=== PATIENT | female | born 1955 | race Caucasian/White ===

== ENCOUNTER → 2017-01-01 | Outpatient (CLI) | payer BC ==
[2017-01-01 17:42] LABS: BASOPHILS # (AUTO) 0.03 10*3/UL; BASOPHILS % (AUTO) 0.4 % (0-1); EOSINOPHILS % (AUTO) 2.8 % (0-8); HEMATOCRIT 44.5 % (37.0-47.0); HEMOGLOBIN 14.4 g/dL (12.0-16.0); LYMPHOCYTES # (AUTO) 2.08 10*3/uL; MEAN CORPUSCULAR HEMOGLOBIN 27.9 PG (27-31); MEAN CORPUSCULAR HGB CONC 32.4 g/dL (33-37); MEAN CORPUSCULAR VOLUME 86.2 FL (81-99); MONOCYTES # (AUTO) 0.57 10*3/UL (0.3-0.8); MONOCYTES % (AUTO) 7.9 % (5-15); NEUTROPHILS % (AUTO) 59.9 % (50-80); RED BLOOD COUNT 5.16 10^6/uL (4.20-5.40)
[2017-01-01 17:46] LABS: PLATELET MORPHOLOGY COMMENT NORMAL MORPHOLOGY (NORM); RBC MORPHOLOGY COMMENT NORMAL MORPHOLOGY (NORM); WBC MORPHOLOGY COMMENT NORMAL MORPHOLOGY (NORM)
[2017-01-01 18:02] LABS: BLOOD UREA NITROGEN 26 mg/dL (7-22); BUN/CREATININE RATIO 37.14 (6-20); CHOL/HDL RATIO 2.85 RATIO (0-4.0); EST GLOMERULAR FILTRATION > 60 (>60 ml/min/1.73m(2)); HDL CHOLESTEROL 76 mg/dL (40-150); SERUM ALBUMIN 4.5 g/dL (3.5-4.8); SERUM CHOLESTEROL 217 mg/dL (120-200)
[2017-01-01 18:38] LABS: ERYTHROCYTE SEDIMENTATION RATE 7 MM/HR (0-20)
== END ==
LOC: MOB LAB 16:02
PROVIDERS: ATTEND Family Medicine
DX: R63.4 Abnormal weight loss (principal); I10 Essential (primary) hypertension; E78.5 Hyperlipidemia, unspecified; K21.9 Gastro-esophageal reflux disease without esophagitis; L98.9 Disorder of the skin and subcutaneous tissue, unspecified
CPT/HCPCS: 36415; 80053; 80061; 82306; 84443; 85025; 85652

== ENCOUNTER → 2017-04-02 | Day surgery (SDC) | payer BC ==
[~2017-04-02] MED LIST: LIDOCAINE HCL 1%/EPI 1:100,000 - 20 ML VIAL ONE; SODIUM BICARBONATE 8.4% - 50 ML VIAL ONE
--- NOTE | 2017-04-02 11:36 | GEN.OPNOTE ---
Operative Note Surgery Date: 04/02/17 Preoperative Diagnosis: 1.2 cm skin lesion right lower leg. Postoperative Diagnosis: Same. Procedure: Excision 1.2 cm skin lesion right lower leg. Surgeon: Willy Carreno MD Anesthesia Type: Local (1% Xylocaine with epinephrine and sodium bicarbonate.) Estimated Blood Loss (mL): 2 Fluids: No IV fluids given. Pathology: Specimen sent to pathology. Marked with a short stitch superiorly and a long stitch laterally. Indications: Nodular lesion right anterior [place]. Slowly increasing in size. Patient desires surgical excision. Findings: Nodular lesion in the dermis. Complications: None. Operative Summary: The patient was taken to the operating suite and placed in the operating table in a supine position. The right lower leg was prepped and draped in a sterile fashion. A surgical timeout was done. The ellipse of skin to include the lesion was taken. This left a defect of approximately 3.5 x 2 cm. The specimen was marked for orientation and sent for pathologic analysis. The skin edges were undermined circumferentially. The deep dermis was closed with inverted interrupted 2-0 Vicryl's. The skin was closed with running interlocking 3-0 Prolene followed by Mastisol Steri-Strips and an appropriate dressing. The patient tolerated all aspects of the procedure well without complication. She was taken to outpatient surgery in stable condition. All counts were correct.
[2017-04-02 11:57] VITALS: RESP 14; TEMP 97.2
== END ==
LOC: SDSC 09:11
PROVIDERS: ATTEND Surgery
DX: L98.9 Disorder of the skin and subcutaneous tissue, unspecified (principal)